=== PATIENT | male | born 1955 | race Caucasian/White ===

== ENCOUNTER 2017-09-14 19:49 | Observation (INO) | payer OTHER ==
--- NOTE | 2017-09-14 19:51 | EDPHY ---
H & P Time Seen by Provider: 09/14/17 19:51 Constitutional: Initial Vital Signs Temperature (C) 36.8 C 09/14/17 19:52 Heart Rate 81 09/14/17 19:52 Respiratory Rate 20 09/14/17 19:52 Blood Pressure 185/112 H 09/14/17 19:52 O2 Sat (%) 98 09/14/17 19:52 O2 Delivery Mode Room Air Allergies/Adverse Reactions: No Known Allergies Allergy (Unverified 09/14/17 20:00) Home Medications: Medication Instructions Recorded Albuterol [Proventil Inhaler HFA 2 puffs IH 09/14/17 (*)] Aspirin [Aspirin 81mg (*)] 81 mg PO DAILY 09/14/17 Atorvastatin Calcium 80 mg PO DAILY 09/14/17 Lisinopril/Hctz 20/12.5MG 2 ea PO DAILY 09/14/17 [Zestoretic/Prinzide 20/12.5MG (*)] Multivitamins [Multivitamin (*)] 1 each PO DAILY 09/14/17 Tiotropium [place] [Spiriva 2 inh IH DAILY 09/14/17 Respimat] amLODIPine BESYLATE [Norvasc 2.5 2.5 mg PO HS 09/14/17 mg (*)] buPROPion XL [Wellbutrin Xl] 150 mg PO DAILY 09/14/17 Medical Decision Making - Diagnostics Imaging Results: Imaging Impressions Chest X-Ray 09/14/17 19:57 Impression: No acute thoracic abnormality. Imaging: Discussed imaging studies w/ scallop binder Radiologist, I viewed and interpreted images myself ED Course/Re-evaluation: CHIEF COMPLAINT: Chest pressure and tightness HISTORY OF PRESENT ILLNESS: The patient is a 62 y/o male with a history of hypertension and hypercholesterolemia complaining of chest tightness and pressure, onset this morning, worsening over the past 2 hours. He has felt chest pressure and tightness previously, usually with exertion, which has not been investigated. Last night he felt nauseated and vomited a couple times. This morning he continued to feel nauseated and developed chest pain described as a pressure and tightness. Over the last two hours, the chest pressure and tightness worsened, prompting his visit. He denies any other associated symptoms. He is a current smoker. He has a family history of heart attack. In the past hour he took 1 regular aspirin (325 mg) and 1 baby aspirin (81 mg). REVIEW OF SYSTEMS: A 10 point review of systems was performed and is negative with the exception of the elements mentioned in the history of present illness. PHYSICAL EXAM: HR, BP, O2 Sat, RR. Temp noted General Appearance: Alert, well hydrated, appropriate, diaphoretic in appearance. Head: Atraumatic without scalp tenderness or obvious injury Eyes: Pupils equal, round, reactive to light and accommodation, EOMI, no trauma , no injection. Ears: Clear bilaterally, no perforation, normal landmarks Nose: Atraumatic, no rhinorrhea, clear. Throat: There is no erythema or exudates, no lesions, normal tonsils, mucus membranes moist. Neck: Supple, 2+ carotid upstroke, nontender, no lymphadenopathy. Respiratory: No retractions, no distress, no wheezes, and no accessory muscle use. Lungs are clear to auscultation bilaterally. Cardiovascular: Regular rate and rhythm, no murmurs, rubs, or gallops. Gastrointestinal: Abdomen is soft, nontender, non-distended, no masses, no rebound, no guarding, no peritoneal signs. Musculoskeletal: Normal active ROM of all extremities, atraumatic. Neurological: Alert, appropriate, and interactive. The patient has normal DTRs and non-focal cranial nerves, motor, sensory, and cerebellar exam. Skin: No rashes, good turgor, no nodules on palpation. Past medical history: Hypertension, hypercholesterolemia Past surgical history: Denies Family history: Heart attack (brother in 50s, father) Social history: Smoker, chaney patient, lives in [place] DIAGNOSTICS/PROCEDURES/CRITICAL CARE TIME: The 12 lead EKG was interpreted by myself. Sinus mechanism, rate 79. See hard copy and/or "tracemaster" electronic copy for interpretation. DIFFERENTIAL DIAGNOSIS: The differential diagnosis for the patient's chest pain included but was not limited to myocardial ischemia, pulmonary embolus, chest wall pain, pleural inflammation, and pulmonary infectious causes. MEDICAL DECISION MAKING: The patient presents with a one day history of chest pain, worsening over the past 2 hours. He has a history of hypertension and hypercholesterolemia. He is also a smoker. In addition, he has a family history of heart attack. He has had this sensation before, usually with exertion. He has associated nausea and vomiting. On exam, he is diaphoretic. Plan for EKG, labs, and chest X-ray. 2033: Chest X-ray is unremarkable. This patient is completely pain-free on his nitroglycerin drip. I am still significantly concerned about his family history of mother father and brothers having significant coronary artery disease and requiring interventions and bypasses. Additionally the patient is a cigarette smoker, has hypertension, has hypercholesterolemia. His chest pain was relieved with nitrates and he is pain-free now. His EKG is nonischemic. His troponin is normal. I will admit him to the hospitalist for further cardiology consultation. - Data Points Laboratory Results: Laboratory Results 09/14/17 20:00 09/14/17 20:00 09/14/17 09/14/17 20: 20:00 WBC 10.44 10^3/uL H 10^3/uL (3.80-9.50) RBC 4.98 10^6/uL 10^6/uL (4.40-6.38) Hgb 16.0 g/dL g/dL (13.7-17.5) Hct 45.3 % % (40.0-51.0) MCV 91.0 fL fL (81.5-99.8) MCH 32.1 pg pg (27.9-34.1) MCHC 35.3 g/dL g/dL (32.4-36.7) RDW 12.2 % % (11.5-15.2) Plt Count 281 10^3/uL 10^3/uL (150-400) MPV 8.9 fL fL (8.7-11.7) Neut % (Auto) 50.0 % % (39.3-74.2) Lymph % (Auto) 37.8 % % (15.0-45.0) [place] % (Auto) 8.4 % % (4.5-13.0) Eos % (Auto) 3.2 % % (0.6-7.6) Baso % (Auto) 0.3 % % (0.3-1.7) Nucleat RBC Rel Count 0.0 % % (0.0-0.2) Absolute Neuts (auto) 5.22 10^3/uL 10^3/uL (1.70-6.50) Absolute Lymphs (auto) 3.95 10^3/uL H 10^3/uL (1.00-3.00) Absolute Monos (auto) 0.88 10^3/uL H 10^3/uL (0.30-0.80) Absolute Eos (auto) 0.33 10^3/uL 10^3/uL (0.03-0.40) Absolute Basos (auto) 0.03 10^3/uL 10^3/uL (0.02-0.10) Absolute Nucleated RBC 0.00 10^3/uL 10^3/uL (0-0.01) Immature Gran % 0.3 % % (0.0-1.1) Immature Gran # 0.03 10^3/uL 10^3/uL (0.00-0.10) Sodium 133 mEq/L L mEq/L (135-145) Potassium 3.9 mEq/L mEq/L (3.5-5.2) Chloride 94 mEq/L L mEq/L (97-110) Carbon Dioxide 26 mEq/l mEq/l (22-31) Anion Gap 13 mEq/L mEq/L (8-16) BUN 15 mg/dL mg/dL (7-23) Creatinine 0.8 mg/dL mg/dL (0.7-1.3) Estimated GFR > 60 Glucose 76 mg/dL mg/dL (70-100) Calcium 9.4 mg/dL mg/dL (8.5-10.4) Troponin I < 0.012 ng/mL ng/mL (0.000-0.034) NT-Pro-B Natriuret Pep 32 pg/mL pg/mL (0-125) Medications Given: Nitroglycerin/Dextrose (Nitroglycerin 200 Mcg/Ml (Premix)) 250 mls @ 0 mls/hr IV CONT GOPI; Titrate PRN Reason: Protocol Stop: 03/13/18 20:29 Last Admin: 09/14/17 20:36 Dose: 250 mls Departure - Departure Disposition: [facility] Clinical Impression: Acute coronary syndrome Condition: Fair Report Scribed for: Rigoberto Escalante Report Scribed by: Zee Zavala Date of Report: 09/14/17 Time of Report: 20:14
--- NOTE | 2017-09-14 20:06 | CPEKG ---
Heart Rate: 79 RR Interval: 759 P-R Interval: 152 QRSD Interval: 80 QT Interval: 392 QTC Interval: 450 P [place]: 76 QRS [place]: 75 T Wave [place]: 55 EKG Severity - BORDERLINE ECG - EKG Impression: SINUS RHYTHM EKG Impression: PROBABLE LEFT ATRIAL ABNORMALITY Electronically Signed By: Yordy Boyer 15-Sep-2017 12:59:43
[2017-09-14 20:14] LABS: PLATELET COUNT 281 10^3/uL (150-400)
[2017-09-14] MEDS ORDERED: NITROGLYCERIN/DEXTROSE 250 ML IV SCH (20:30)
[2017-09-14] MEDS ORDERED: ONDANSETRON 4 MG/2 ML VIAL IVP PRN (22:18)
[2017-09-14] MEDS ORDERED: ACETAMINOPHEN 325 MG TAB PO PRN (22:18)
[2017-09-14] MEDS ORDERED: ONDANSETRON DISINTEGRATING 4 MG TAB PO PRN (22:18)
--- NOTE | 2017-09-14 23:05 | PDGENHP ---
History and Physical - Chief Complaint Chest pressure - History of Present Illness 62 yo M w/ HTN, HLD, and COPD presents with chest pressure. Patient noticed moderate, central chest pressure starting around 7 PM tonight. He was sitting at his desk working on his computer, mildly stressed out. He has no prior CAD history but has a >40 pack year smoking history, HTN, HLD, and family history of CAD. He denies radiation of pain or associated symptoms. Upon arrival in the ED his pain was relieved by NTG; he was subsequently placed on a drip. His troponin is negative and ECG shows no signs of acute ischemia. He is chest pain free at the time of my evaluation. History Information - Allergies/Home Medication List Allergies/Adverse Reactions: No Known Allergies Allergy (Unverified 09/14/17 20:00) Home Medications: Albuterol [Proventil Inhaler HFA (*)] 2 puffs IH 09/14/17 [Last Taken ] Aspirin [Aspirin 81mg (*)] 81 mg PO DAILY 09/14/17 [Last Taken 09/14/17] Atorvastatin Calcium 80 mg PO DAILY 09/14/17 [Last Taken 09/14/17] Lisinopril/Hctz 20/12.5MG [Zestoretic/Prinzide 20/12.5MG (*)] 2 ea PO DAILY [Last Taken 09/14/17] Multivitamins [Multivitamin (*)] 1 each PO DAILY 09/14/17 [Last Taken 09/14/17] Tiotropium [place] [Spiriva Respimat] 2 inh IH DAILY 09/14/17 [Last Taken ] amLODIPine BESYLATE [Norvasc 2.5 mg (*)] 2.5 mg PO HS 09/14/17 [Last Taken 09/13] buPROPion XL [Wellbutrin Xl] 150 mg PO DAILY 09/14/17 [Last Taken 09/14/17] I have personally reviewed and updated: family history, medical history - Past Medical History COPD, hypertension, hyperlipidemia - Family History Positive for: CAD - Social History Smoking Status: Current every day smoker Review of Systems Review of Systems: ROS: 10pt was reviewed & negative except for what was stated in HPI & below Physical Exam Physical Exam: Temp Pulse Resp BP Pulse Ox 36.8 C 85 16 116/72 93 09/14/17 22:01 09/14/17 22:01 09/14/17 22:01 09/14/17 22:01 09/14/17 22:01 Constitutional: no apparent distress, not in pain Eyes: PERRL, EOMI Ears, Nose, Mouth, Throat: moist mucous membranes, no oral mucosal ulcers Cardiovascular: regular rate and rhythym, no murmur, rub, or gallop Respiratory: no respiratory distress, reduced air movement Gastrointestinal: normoactive bowel sounds, soft, non-tender abdomen Skin: warm, normal color Musculoskeletal: full muscle strength, no muscle tenderness Neurologic: AAOx3, CN II-XII Intact Psychiatric: interacting appropriately, not anxious Lab Data & Imaging Review 09/14/17 20:00 09/14/17 20:00 WBC 10.44 10^3/uL (3.80-9.50) H 09/14/17 20:00 RBC 4.98 10^6/uL (4.40-6.38) 09/14/17 20:00 Hgb 16.0 g/dL (13.7-17.5) 09/14/17 20:00 Hct 45.3 % (40.0-51.0) 09/14/17 20:00 MCV 91.0 fL (81.5-99.8) 09/14/17 20:00 MCH 32.1 pg (27.9-34.1) 09/14/17 20:00 MCHC 35.3 g/dL (32.4-36.7) 09/14/17 20:00 RDW 12.2 % (11.5-15.2) 09/14/17 20:00 Plt Count 281 10^3/uL (150-400) 09/14/17 20:00 MPV 8.9 fL (8.7-11.7) 09/14/17 20:00 Neut % (Auto) 50.0 % (39.3-74.2) 09/14/17 20:00 Lymph % (Auto) 37.8 % (15.0-45.0) 09/14/17 20:00 [place] % (Auto) 8.4 % (4.5-13.0) 09/14/17 20:00 Eos % (Auto) 3.2 % (0.6-7.6) 09/14/17 20:00 Baso % (Auto) 0.3 % (0.3-1.7) 09/14/17 20:00 Nucleat RBC Rel Count 0.0 % (0.0-0.2) 09/14/17 20:00 Absolute Neuts (auto) 5.22 10^3/uL (1.70-6.50) 09/14/17 20:00 Absolute Lymphs (auto) 3.95 10^3/uL (1.00-3.00) H 09/14/17 20:00 Absolute Monos (auto) 0.88 10^3/uL (0.30-0.80) H 09/14/17 20:00 Absolute Eos (auto) 0.33 10^3/uL (0.03-0.40) 09/14/17 20:00 Absolute Basos (auto) 0.03 10^3/uL (0.02-0.10) 09/14/17 20:00 Absolute Nucleated RBC 0.00 10^3/uL (0-0.01) 09/14/17 20:00 Immature Gran % 0.3 % (0.0-1.1) 09/14/17 20:00 Immature Gran # 0.03 10^3/uL (0.00-0.10) 09/14/17 20:00 Sodium 133 mEq/L (135-145) L 09/14/17 20:00 Potassium 3.9 mEq/L (3.5-5.2) 09/14/17 20:00 Chloride 94 mEq/L (97-110) L 09/14/17 20:00 Carbon Dioxide 26 mEq/l (22-31) 09/14/17 20:00 Anion Gap 13 mEq/L (8-16) 09/14/17 20:00 BUN 15 mg/dL (7-23) 09/14/17 20:00 Creatinine 0.8 mg/dL (0.7-1.3) 09/14/17 20:00 Estimated GFR > 60 09/14/17 20:00 Glucose 76 mg/dL (70-100) 09/14/17 20:00 Calcium 9.4 mg/dL (8.5-10.4) 09/14/17 20:00 Troponin I < 0.012 ng/mL (0.000-0.034) 09/14/17 20:00 NT-Pro-B Natriuret Pep 32 pg/mL (0-125) 09/14/17 20:00 Imaging Review: Imaging Impressions Chest X-Ray 09/14/17 19:57 Impression: No acute thoracic abnormality. Visualized and Interpreted EKG results: Yes EKG Interpretation: Positive for: normal sinsus rhythm, other (Small Q waves inferior leads, no acute ischemia) Assessment & Plan Assessment: 62 yo M w/ COPD, HTN, and HLD presents with chest pressure. Plan: 1. Chest pain - Chest pressure starting around 7 PM, relieved by NTG upon arrival to ED. HEART score of 4 noting significant risk factors but negative objective signs of ischemia thus far. Troponin negative and ECG without acute evidence of ischemia. He is currently chest pain free while on NTG drip. - Admit to PCU for observation - Monitor on telemetry, trend cardiac enzymes - Will order treadmill stress test for tomorrow, if chest pain recurs or other concerning signs arise, will start heparin and instead consult cardiology for possible cath 2. HTN - Elevated upon arrival, improved after NTG. On lisinopril/hctz and amlodipine as outpatient. 3. COPD - With >40 pack year smoking hx. Counseled cessation; continue tiotropium. No evidence of acute exacerbation. 4. HLD - On atorvastatin. Diet - NPO @ NV Code - Full Ppx - LMWH Dispo - Admit to PCU under observation status
[2017-09-15 05:42] LABS: PLATELET COUNT 243 10^3/uL (150-400)
[2017-09-15] MEDS ORDERED: ENOXAPARIN 40 MG/0.4 ML SYR SC SCH (09:00)
[2017-09-15] MEDS ORDERED: DIAZEPAM 5 MG TAB PO ONE (10:20)
[2017-09-15] MEDS ORDERED: ACETAMINOPHEN 325 MG TAB PO PRN (10:20)
[2017-09-15] MEDS ORDERED: ASPIRIN EC 325 MG TAB PO ONE (10:20)
[2017-09-15] MEDS ORDERED: TEMAZEPAM 15 MG CAP PO PRN (10:20)
[2017-09-15] MEDS ORDERED: FAMOTIDINE 20 MG TAB PO ONE (10:20)
[2017-09-15] MEDS ORDERED: NITROGLYCERIN 0.4 MG BTL SL PRN (10:20)
[2017-09-15] MEDS ORDERED: diphenhydrAMINE 25 MG CAP PO ONE (10:20)
[2017-09-15] MEDS ORDERED: LORazepam 2 MG/ML INJ IVP PRN (10:22)
[2017-09-15] MEDS ORDERED: LIDOCAINE 1% 300 MG/30 ML SDV ONE (10:44)
[2017-09-15] MEDS ORDERED: IOPAMIDOL (ISOVUE-370) 150 ML BTL IV ONE (10:44)
[2017-09-15] MEDS ORDERED: fentaNYL 100 MCG/2 ML INJ ONE (10:44)
[2017-09-15] MEDS ORDERED: MIDAZOLAM 2 MG/2 ML VIAL ONE (10:44)
--- NOTE | 2017-09-15 10:59 | CPEKG ---
Heart Rate: 74 RR Interval: 811 P-R Interval: 140 QRSD Interval: 88 QT Interval: 404 QTC Interval: 449 P [place]: 76 QRS [place]: 79 T Wave [place]: 71 EKG Severity - NORMAL ECG - EKG Impression: SINUS RHYTHM Electronically Signed By: Yordy Boyer 15-Sep-2017 12:59:34
[2017-09-15 11:09] LABS: PLATELET COUNT 251 10^3/uL (150-400)
[2017-09-15 11:16] LABS: INR 0.95 (0.83-1.16); PROTIME(PATIENT) 12.9 SEC (12.0-15.0)
--- NOTE | 2017-09-15 11:20 | PDHPUP ---
History & Physical Update H&P update statement: This history and physical update is based on an assessment of the patient which was completed after admission or registration (within 24 hours), but prior to the surgery/procedure. H&P update: H&P reviewed & patient examined, no change in patient's condition since H&P completed
--- NOTE | 2017-09-15 11:21 | PDPROPOC ---
Sedation Plan of Care Sedation Plan of Care: vital signs stable, mental status noted, patient educated of risks, benefits, alternatives, patient can tolerate sedation ASA Classification: ASA 2 Planned drugs: fentanyl, midazolam Mallampati Score: Class 2 Mallampati Reference Image: Patient passed 3-3-2 rule?: Yes
[2017-09-15] MEDS ORDERED: ATROPINE SULFATE 1 MG/10 ML SYR IVP PRN (12:10)
--- NOTE | 2017-09-15 12:32 | ASMTCMCOM ---
CM Note CM Note Notes: Chart reviewed for discharge planning purposes. Patient is 62 year old male admitted via ED for c/o chest pain. He is to have angiogram today. Needs to be determined pending outcome of diagnostics. CM to follow. Date Signed: 09/15/2017 12:32 PM Electronically Signed By:Meghan Mckeon RN
--- NOTE | 2017-09-15 12:40 | GCON ---
[f rep st] CONSULTATION CARDIOLOGY CONSULTATION DATE OF CONSULTATION: 09/15/2017 REASON FOR CONSULTATION: We are asked by Dr. Yolanda Sifuentes to evaluate this patient for his chest pressu re. HISTORY OF PRESENT ILLNESS: The patient is a 62-year-old male with current tobacco abuse, hypertensi on, dyslipidemia, and COPD, who presented last night after the onset of chest pressure. Yesterday, h jia reports feeling general malaise upon awakening. He had associated nausea with this. He was unable to execute his typical activities that he would do on his day off, including trimming the trees arou nd his home. At approximately 6 p.m., he started to note a midsternal chest pressure. This was not associated with any dyspnea, diaphoresis, nausea, or radiation. To his recollection, for probably e past 2 years he has had episodes of chest pressure, though yesterday's episode was more severe in i ntensity and longer lasting in duration. He denies any recent PND, orthopnea, palpitations, presynco pe, or syncope. He has noted no recent illness. PAST MEDICAL HISTORY: 1. Hypertension. 2. Dyslipidemia. 3. COPD. 4. Ongoing tobacco abuse. OUTPATIENT MEDICATIONS: Include amlodipine, multivitamin, atorvastatin, Wellbutrin, Spiriva, lisinop ril with hydrochlorothiazide, aspirin, and albuterol. ALLERGIES: No known drug allergies. FAMILY HISTORY: Father had an MA and bypass at age 84. Mother had an MA at age 92. Brother, who is younger than him, had an MA with stents. SOCIAL HISTORY: Patient currently smokes 7 cigarettes per day but has a 30-year history of smoking. He reports 2 beers nightly. His is present in the room currently. REVIEW OF SYSTEMS: As per HPI. A complete 10-point review of system was obtained and is negative ex cept for what is dictated. PHYSICAL EXAMINATION: VITAL SIGNS: BP of 101/65, heart rate of 86, respirations 16, O2 saturation 9 0% on room air, and temp of 98.2 degrees Fahrenheit. GENERAL: A very pleasant male in no apparent d istress. EYES: PERRL. HEART: Regular rate and rhythm with distant heart sounds. LUNGS: Clear. ABDOMEN: Soft with normoactive bowel sounds. SKIN: Warm and dry. EXTREMITIES: There are 2+ PT an d DP pulses bilaterally without peripheral edema. PSYCH: Normal mood and affect for given situation . NEURO: No focal deficits detected. LABORATORY DATA: CBC with WBC 10, hemoglobin 14, hematocrit 40, platelet count of 243. , BMP with so dium 135, potassium 3.7, chloride 100, CO2 26, BUN 17, creatinine 0.8, and glucose of 138. Troponin less than 0.012 x2. NT proBNP at 32. A 12-lead ECG, personally interpreted, demonstrates sinus rhythm with left atrial abnormality. Chest x-ray from 09/14/2017 shows no acute thoracic abnormality. Telemetry reviewed shows sinus rhythm wi thout arrhythmias present. I discussed patient's care with Dr. Yolanda Sifuentes. IMPRESSION AND PLAN: The patient is a 62-year-old male with multiple cardiac risk factors. 1. Acute coronary syndrome: He presents with unstable angina that continues despite being on nitro drip. He warrants invasive evaluation for [place] Coronary System class 4 symptoms. He will procee d to cardiac catheterization for further risk stratification. 2. Tobacco abuse: Patient will be counseled on cessation. 3. Dyslipidemia: He is on statin therapy as an outpatient. Lipids will be checked. 4. Hypertension: Blood pressures are low in the presence of use of a nitro drip, and more recommend ations will follow further cardiac testing. /[id number]/MODL
--- NOTE | 2017-09-15 13:00 | CPIP ---
[f rep st] INVASIVE CARDIAC PROCEDURE DATE OF PROCEDURE: 09/15/2017 PROCEDURE: 1. Coronary angiography. 2. Left ventriculography. INDICATION: Acute coronary syndrome with negative troponin but ongoing symptoms of chest pain. ACCESS: The patient was prepped and draped in sterile fashion. 1% lidocaine was used to anesthetize the right inguinal region. A 6-German introducer sheath was placed selectively into the right commo n femoral artery via modified Seldinger technique. CORONARY ANGIOGRAPHY: A 6-German JL4 was advanced to the left main coronary artery and images obtain ed. The left main coronary artery bifurcated into an LAD and circumflex coronary arteries. The left main coronary artery appeared normal. The left anterior descending coronary artery gave rise to 1 p rominent diagonal branch. The left anterior descending coronary artery had a single discrete 20% roslyn nosis in the mid vessel. The diagonal artery is free of any significant disease. The circumflex cor onary artery gave rise to 1 large branching OM artery. The circumflex coronary artery appeared demetrio l. The branching OM artery also appeared normal. A 6-German JR4 was advanced to the right coronary artery and images obtained. The right coronary artery is dominant. The right coronary artery had mi ld diffuse disease throughout. There was no stenosis greater than 20%. LEFT VENTRICULOGRAPHY: A 6-German pigtail catheter was advanced in the left ventricle and images obt ained. Left ventricle is normal size and had normal systolic function. Estimated ejection fraction was 65%. COMPLICATIONS: None. CONCLUSIONS: 1. Mild coronary artery disease without flow limitation. 2. Normal left ventricular size and systolic function. 3. Plan is for medical management. /[id number]/MODL
[2017-09-15 14:47] VITALS: BP 138/91; PULSE 76; RESP 14; TEMP 98.4; O2SAT 99
--- NOTE | 2017-09-15 15:09 | ASMTLACE ---
LACE Length of stay for Answers: 1 day current admission Acuity / Level of Answers: No Care: Did the patient have an inpatient admission? Comorbidities - select Answers: Other Notes: HTN all that apply # of Emergency department Answers: 1-2 visits in the last 6 months Score: 3 Date Signed: 09/15/2017 03:08 PM Electronically Signed By:Meghan Mckeon RN
--- NOTE | 2017-09-15 15:10 | ASMTCMCOM ---
CM Note CM Note Notes: Patient has been medically cleared for discharge per Cardiology. No needs identified. CM available should needs change. Date Signed: 09/15/2017 03:10 PM Electronically Signed By:Meghan Mckeon RN
--- NOTE | 2017-09-15 17:15 | GDS ---
[f rep st] DISCHARGE SUMMARY DISCHARGE DIAGNOSES: Include: 1. Chest pain, noncardiac. 2. Chronic obstructive pulmonary disease. 3. Hypertension. 4. Hyperlipidemia. HISTORY OF PRESENT ILLNESS: This is a 62-year-old male with a history of hypertension and hyperlipid emia, and an extensive family history of coronary disease, who presents with complaints of chest pain . For details of the patient's initial presentation, please see the History and Physical dated 09/14. CONSULTATIVE SERVICES: Cardiology. PROCEDURES: On 09/15/2017 the patient underwent cardiac catheterization which showed no obstructive coronary artery disease. HOSPITAL COURSE: By issue: Chest pain: Patient was ruled out with serial troponins and EKG. Matthew nued to have symptoms which prompted the use of a nitroglycerin drip. It was noted as the patient wa s weaned off the drip that he would have recurrence of symptom and therefore was taken to cardiac cat heterization for imaging. Patient had normal coronary arteries on cath and was felt safe to discharg e on his outpatient regimen for hypertension and hyperlipidemia. MEDICATIONS AT DISPOSITION: Please reference the Medication Reconciliation printed on 09/15/2017. FOLLOWUP APPOINTMENTS: Include with [facility] and his primary care provider in the next 7-10 days. TIME SPENT: I spent greater than 30 minutes in the planning and coordination of this discharge. /[id number]/MODL
== END 2017-09-15 15:52 | disposition home or self-care (01) ==
LOC: F2W 22:20
PROVIDERS: ADMIT Student in an Organized Health Care Education/Training Program; ATTEND Hospitalist
PROC: B2111ZZ Fluoroscopy of Multiple Coronary Arteries using Low Osmolar Contrast (ICD-10-PCS; principal; 2017-09-14)
PROC: B2151ZZ Fluoroscopy of Left Heart using Low Osmolar Contrast (ICD-10-PCS; principal; 2017-09-14)
PROC: 4A023N7 Measurement of Cardiac Sampling and Pressure, Left Heart, Percutaneous Approach (ICD-10-PCS; principal; 2017-09-14)
DX: I24.9 Acute ischemic heart disease, unspecified (principal); I10 Essential (primary) hypertension; E78.00 Pure hypercholesterolemia, unspecified; J44.9 Chronic obstructive pulmonary disease, unspecified; F17.210 Nicotine dependence, cigarettes, uncomplicated; Z82.49 Family history of ischemic heart disease and other diseases of the circulatory system
CPT/HCPCS: 71046; 93005; 93458; G0378; C1760; J1644; J1650; J2060; J2250; J3010; Q9967